=== PATIENT | male | born 1990 | race Native Hawaiian/Other Pacific Islander ===

== ENCOUNTER 2019-01-24 23:27 | Emergency (ER) | payer OTHER ==
[~2019-01-24] VITALS: Ht 170.2 cm; Wt 63.5 kg
[2019-01-24 23:39] VITALS: BP 145/97; TEMP 98.1
[2019-01-25 00:21] LABS: PLATELET COUNT 213 K/uL (142-355)
[2019-01-25 00:28] LABS: POTASSIUM 3.5 mmol/L (3.6-5.2)
== END 2019-01-25 21:23 | disposition other institution (70) ==
LOC: ED 23:27
PROVIDERS: Emergency Medicine
DX: F15.20 Other stimulant dependence, uncomplicated (principal)
CPT/HCPCS: 36415; 80053; 80307; 80320; 80329; 81000; 85027; 93005; 96360; 99285

== ENCOUNTER 2019-01-25 23:37 | Emergency (ER) | payer OTHER | END 2019-01-26 00:19 | disposition home or self-care (01) | LOC: ED 23:37 | DX: F15.20 Other stimulant dependence, uncomplicated (principal) ==

== ENCOUNTER 2022-06-28 12:52 | Emergency (ER) | payer OTHER ==
[~2022-06-28] VITALS: Ht 175.3 cm; Wt 104.3 kg
[2022-06-28 12:52] VITALS: TEMP 97.7
[2022-06-28 13:45] VITALS: BP 147/79
== END 2022-06-28 13:59 ==
LOC: ED 12:52
DX: M54.59 Other low back pain (principal)
CPT/HCPCS: 99282; J1885; J2360